=== PATIENT | female | born 1960 | race Caucasian/White ===

== ENCOUNTER 2019-08-10 20:01 | Inpatient (IN) | payer SELFPAY ==
[2019-08-10] VITALS (189 sets, daily range): BP systolic 124; BP diastolic 104; PULSE 82; TEMP 97.9; O2SAT 87–100
[~2019-08-10] VITALS: Ht 172.7 cm; Wt 75.4 kg
[2019-08-10 21:49] LABS: BASO % 0.2 % (0.0-2.0); GRAN # 14.4 (1.4-6.5); GRAN % 89.5 % (42.2-75.2); HEMATOCRIT 38.1 % (37.0-47.0); HEMOGLOBIN 12.3 g/dl (12.5-16.0); LYMPH % 6.1 % (20.0-51.0); MEAN CELL VOLUME 96 fl (80.0-100.0); MEAN CORPUSCULAR HEMOGLOBIN 31 pg (27.0-31.0); MEAN CORPUSCULAR HGB CONC 32 g/dl (33.0-37.0); MEAN PLATELET VOLUME 9.4 fl (7.4-10.4); MONO # 0.6 (0.1-0.6); MONO % 3.7 % (1.7-9.3); PLATELET COUNT 220 K/mm3 (130-400); RED BLOOD COUNT 3.96 M/mm3 (4.10-5.30); REDCELL DISTRIBUTION WIDTH-CV 15.8 % (11.5-14.5)
[2019-08-10 21:53] LABS: PROTHROMBIN TIME 11.5 SECONDS (9.7-12.8)
[2019-08-10 22:01] LABS: BILIRUBIN,TOTAL 0.4 mg/dL (0.0-1.0); CALCIUM 9.3 mg/dL (8.4-10.2); CREATININE, serum 1.02 (0.52-1.25); MAGNESIUM 1.8 mg/dL (1.6-2.3); POTASSIUM 4.7 mmol/L (3.4-5.0); TOTAL PROTEIN 7.5 gm/dL (6.4-8.2)
[2019-08-11] VITALS (325 sets, daily range): BP systolic 143–156; BP diastolic 89–99; PULSE 75–85; TEMP 98.1–98.6; O2SAT 93–100
[2019-08-11 00:28] LABS: COLLECTION METHOD CLEAN CATCH
[2019-08-11 00:34] LABS: PH 6 (5-8); URINE APPEARANCE Clear; URINE BACTERIA Rare /hpf; URINE BILIRUBIN Negative (NEGATIVE); URINE BLOOD Negative (NEGATIVE); URINE COLOR Yellow; URINE GLUCOSE Negative (NEGATIVE); URINE KETONE Negative (NEGATIVE); URINE LEUKOCYTE ESTERASE 1+ (NEGATIVE); URINE NITRATE Positive (NEGATIVE); URINE PROTEIN(semi-quant) Negative (NEGATIVE); URINE UROBILINOGEN Negative (NEGATIVE)
--- NOTE | 2019-08-11 01:02 | NUR ---
Report received from Katharine at [facility] at 1950 08/10/19. Patient arrived via EMS stretcher at 202908/10/19. Patient nauseated but able to move self to ICU bed. Dr. Queen notified of patient arrival at 2052, Dr. Mejia consulted in patient room at 2118. Anna also called for update at 2118. Patient does not know her medications but was notified that her or another family member can bring them 08/11/19. Patient alert and oriented, has been sleeping throughout shift. Tolerated ambulated to toilet and back to bed without issue. Patient remains in sinus rhythm-see tele strips.
[2019-08-11] MEDS ORDERED: COZAAR 50MG50 MG/TAB PO (08:58)
[2019-08-11] MEDS ORDERED: SYNTHROID0.112 MG/T PO (08:58)
[2019-08-11] MEDS ORDERED: CORDARONE200 MG/TAB PO (08:59)
[2019-08-11] MEDS ORDERED: FOLIC ACID 11 MG/TA1 PO (08:59)
--- NOTE | 2019-08-11 10:00 | NUR ---
Discharge teaching completed at this time. Pt and spouse reviewed dsicharge packet, new meds and script sent to nae, f/u appointment. INT dc'd, tip itnact. Answered all qeustions. Pt escorted out via w/c by myself with all belongings. to drive home, criteria met.
--- NOTE | 2019-08-11 10:00 | NUR ---
The patient discharged before intake could be completed. Michelle Hamm with finance informed SW that she did an FAA with the patient and will do a Medicaid application with the patient after her follow-up with Dr. Mejia.
== END 2019-08-11 10:00 | disposition home or self-care (01) | DRG 309 ==
LOC: IMCU 20:01 → ICU 20:39
PROVIDERS: ADMIT Internal Medicine Nephrology
DX: I48.91 Unspecified atrial fibrillation (principal); Z94.0 Kidney transplant status; Z87.891 Personal history of nicotine dependence; M06.9 Rheumatoid arthritis, unspecified; I10 Essential (primary) hypertension; I16.0 Hypertensive urgency; E07.9 Disorder of thyroid, unspecified
CPT/HCPCS: J2405